=== PATIENT | male | born 1980 | race Two or more races ===

== ENCOUNTER 2025-01-09 07:04 | Emergency (ER) | payer BC, OTHER ==
[~2025-01-09] VITALS: Ht 182.9 cm; Wt 118.0 kg
[2025-01-09 07:05] VITALS: PULSE 0; RESP 0; O2SAT 0
[2025-01-09] MEDS ORDERED: AMIODARONE HCL (50 MG/ ML) 3 ML VIAL IV ONE ×2 (07:05→09:06)
[2025-01-09] MEDS ORDERED: EPINEPHrine HCL 1 MG/10 ML SYRG IV ONE (07:05)
[2025-01-09 07:10] VITALS: TEMP 100.5
--- NOTE | 2025-01-09 07:22 | ED.PDOC ---
CPR-HPI HPI Comments 44 y/o M, BIBA, with no past medical history presents to the ED in full arrest. EMS reports, patient was playing basket ball at a high school with friends when he suddenly collapsed. Prior to EMS, arrival friends started CPR and shocked patient x1 with AED; patient was down approximately 10 min prior to EMS arrival. In route to the ED, patient was found in V-Fib and was shocked x4; patient was given x4 epinephrin and 225mg of lidocaine with no return of ROSC. No airway was established in route d/t patient's jaw being clenched. Patient arrived to the ED at 0704 and was transferred to ER bed 7, ACLS protocol initiated. ROSC established as of 718. 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, Medications, Allergies Allergies: Coded Allergies: NO KNOWN ALLERGIES (Unverified , 08/13/10) Information Source: Emergency Med Personnel Mode of Arrival: EMS Timing: Minutes Duration: Down time prior EMS: (10min), Total time prior hopital: (15min) Onset: With exertion Available Hx: Unknown Inital rhythm: V-fib Treatment: CPR Associated signs and symptoms: None Past Medical History PAST MEDICAL HISTORY: Unobtainable Surgical History: Unobtainable Family History Family History: Unknown Social History Smoker: Unobtainable Alcohol: Unobtainable Drugs: Unobtainable Lives In: Unobtainable Unable to Obtain due to: Medical Urgency All Other Systems: Reviewed and Negative Physical Exam Exam Comments Patient pale diaphoretic, obese male unresponsive on arrival. No airway in place. Limited exam due to emergent situation. IO in place to the left tib-fib General Appearance: Other HEENT: Other Neck: Other Respiratory: Other Cardiovascular: Other Breast Exam: Other Gastrointestinal: Other Genitalia: Other Pelvic: Other Rectal: Other Extremities: Other Neurologic: Other Cerebellar Function: Other Reflexes: Other Skin: Other Lymphatic: Other EKG EKG : Comments Sinus tachycardia 134 left bundle branch block, no ST changes Was a procedure done? Was a procedure done?: Yes Sedation Sedation?: No Intubation Indication: Respiratory Insufficiency Intubation Approach: Orotracheal Intubation size: cm (8.0 at 22cm) Informed consent obtained: Yes Risks/benefits/alt described: Yes Differential Dx CPR Differential Diagnosis: Cardiopulmonary arrest, Heart Block, Myocardial Infarction, Pneumothorax, Pulmonary Embolus X-Ray, Labs, Meds, VS Vital Signs Date Time Temp Pulse Resp B/P (MAP) Pulse Ox O2 Delivery O2 Flow Rate FiO2 01/09/25 11:08 0 01/09/25 11:07 0 Ambu-Bag 01/09/25 08:45 127 20 74/46 (55) 68 01/09/25 08:40 89 27 65/40 (48) 96 01/09/25 08:40 65/40 01/09/25 08:40 65/40 01/09/25 08:35 51 13 66/15 (32) 77 01/09/25 08:35 66/15 01/09/25 08:35 66/15 01/09/25 08:30 109 17 75/14 (34) 77 01/09/25 08:25 76/40 01/09/25 08:25 124 24 76/40 (52) 78 01/09/25 08:25 134 Ambu-Bag 133 01/09/25 08:20 122 22 72/41 (51) 79 01/09/25 08:20 72/41 01/09/25 08:15 123 23 70/34 (46) 86 01/09/25 08:15 70/34 01/09/25 08:10 116 23 56/32 (40) 80 01/09/25 08:05 121 20 67/31 (43) 76 01/09/25 08:05 67/31 01/09/25 08:00 124 19 70/40 (50) 79 01/09/25 08:00 70/40 01/09/25 07:55 140 30 116/76 (89) 88 01/09/25 07:55 116/76 01/09/25 07:51 108/62 01/09/25 07:50 138 23 108/62 (77) 89 01/09/25 07:45 133 27 109/54 (72) 96 01/09/25 07:40 116/71 01/09/25 07:40 127 25 116/71 (86) 84 01/09/25 07:35 131 23 116/73 (87) 89 01/09/25 07:33 132 01/09/25 07:30 132 13 103/63 (76) 95 01/09/25 07:25 133 19 100/63 (75) 85 01/09/25 07:20 122 29 69/43 (52) 77 01/09/25 07:14 133 26 116/71 (86) 91 100 01/09/25 07:10 100.5 10 100.5 01/09/25 07:05 0 0 0/0 (0) 0 01/09/25 07:05 0 0 0 Mechanical Ventilator+ 100 100 Lab Test 01/09/25 08:23 01/09/25 07:30 Range/Units Myoglobin Pending Troponin I High Sensitivity 2047 *H 572 *H </=54 ng/L White Blood Count 17.0 H 4.4-10.8 10^3/uL Red Blood Count 4.90 4.5-5.90 10^6/uL Hemoglobin 14.9 13.5-17.5 g/dL Hematocrit 47.7 41.0-53.0 % Mean Corpuscular Volume 97.4 80.0-100.0 fL Mean Corpuscular Hemoglobin 30.4 28.0-32.0 pg Mean Corpuscular Hemoglobin Concent 31.2 L 32.0-36.0 g/dL Red Cell Distribution Width 14.0 11.8-14.3 % Platelet Count 208 140-450 10^3/uL Mean Platelet Volume 9.7 6.9-10.8 fL Neutrophils (%) (Auto) 37.0-80.0 % Lymphocytes (%) (Auto) 10.0-50.0 % Monocytes (%) (Auto) 0.0-12.0 % Basophils (%) (Auto) 0.0-2.0 % Neutrophils # (Auto) 1.6-8.6 10 ^3/uL Lymphocytes # (Auto) 0.4-5.4 10 ^3/uL Monocytes # (Auto) 0-1.3 10 ^3/uL Differential Total Cells Counted 100.0 100 Neutrophils % (Manual) 40 37.0-80.0 Band Neutrophils % (Manual) 2 Lymphocytes % (Manual) 48 10.0-50.0 Monocytes % (Manual) 7 0-12 Eosinophils % (Manual) 1 0-7 Basophils % (Manual) 0 0.0-2.0 Metamyelocytes % (manual) 0 Myelocytes % (Manual) 0 Promyelocytes % (Manual) 0 Blast Cells % (Manual) 0 Reactive Lymphocytes 2 Platelet Estimate Adequate Prothrombin Time 11.2 9.3-11.8 sec Prothrombin Time INR 1.06 0.9-1.15 Activated Partial Thromboplast Time 29.1 24.5-34.5 SEC D-Dimer, Quantitative 19.57 H 0.0-0.49 mg/L FEU Blood Gas Specimen Type Arterial Blood Gas Sample Site Right radial Blood Gas Patient Temperature 37.0 Arterial Blood Date Drawn [id number] Arterial Blood pH 6.872 *L 7.350-7.450 Arterial Blood Partial Pressure CO2 51.4 H 35.0-48.0 mmHg Arterial Blood Partial Pressure O2 132.8 H 83.0-108.0 mmHg Arterial Blood HCO3 9.2 L 21.0-28.0 mmol/L Arterial Blood Oxygen Saturation 95.5 94.0-98.0 % Arterial Blood Base Excess -24.6 L -2.0-3.0 mmol/L Arterial Blood Oxyhemoglobin 94.7 94.0-98.0 % Arterial Blood Carboxyhemoglobin 0.1 L 0.5-1.5 % Arterial Blood Methemoglobin 0.7 0.0-1.5 % Ry Test Yes Blood Gas Total Hemoglobin 15.80 13.5-17.5 g/dL Blood Gas Liter Flow 15.00 Blood Gas Modality Mask - nrb FiO2 % 100.0 Blood Gas Critical Value Read Back yes Blood Gas Notified Whom Blood Gas Notified Time [id number] Blood Gas Notified By online media director chuck Sodium Level 144 136-145 mmol/L Potassium Level 3.1 L 3.5-5.1 mmol/L Chloride Level 101 98-107 mmol/L Carbon Dioxide Level 17 L 20-31 mmol/L Anion Gap 26 H 5-15 Blood Urea Nitrogen 24 H 9-23 mg/dL Creatinine 1.67 H 0.700-1.30 mg/dL Glomerular Filtration Rate Calc 51 >90 mL/min BUN/Creatinine Ratio 14.4 10.0-20.0 Serum Glucose 481 *H 74-106 mg/dL Calcium Level 10.2 8.7-10.4 mg/dL Phosphorus Level 10.9 H 2.4-5.1 mg/dL Magnesium Level 4.6 *H 1.6-2.6 mg/dL Total Bilirubin 0.6 0.2-1.0 mg/dL Direct Bilirubin 0.2 <0.3 mg/dL Aspartate Amino Transferase (AST) 261 H 13-40 U/L Alanine Aminotransferase (ALT) 394 H 7-40 U/L Alkaline Phosphatase 118 H 46-116 U/L Creatine Kinase 156 46-171 U/L B-Type Natriuretic Peptide 244.57 0-100 pg/mL Total Protein 5.4 L 5.7-8.2 g/dL Albumin 3.6 3.2-4.8 g/dL Lipase 185 H 12-53 U/L Cortisol AM Sample 3.29 L 5.27-22.45 ug/dL Microbiology Date/Time Source Procedure Growth Status 01/09/25 07:45 Sputum Expectorated Sputum Gram Stain - Preliminary Resulted 01/09/25 07:45 Sputum Expectorated Sputum Respiratory Culture Pending Resulted Current Medications Medications (Trade) Dose Ordered Sig/Amaury Route Start Time Stop Time Status Last Admin Norepinephrine Bitartrate 250 ml @ 3.75 mls/hr Q24H IV 01/09/25 07:30 01/09/25 08:00 Propofol 100 ml @ 3.544 mls/ hr Q24H IV 01/09/25 07:30 01/09/25 07:40 Fentanyl Citrate 250 ml @ 2.5 mls/hr Q24H IV 01/09/25 09:15 01/09/25 08:35 [place] [id number] Ph: [phone] DIAGNOSTIC IMAGING Diagnostic Imaging Report : [id number] Signed PATIENT: ELEANOR HER ACCT: [id number] UNIT: [id number] : 1980 LOC: ER ROOM / BED: / AGE / SEX: 44 / M ADM STATUS: REG ER SERVICE 0720 ORDERING PHYSICIAN: JENNIFER BLUM MD PROCEDURE(s): CXRP - CHEST PORTABLE REASON: S/P INTUBATION ROSC ORDER NUMBER(s): [id number], ACCESSION NUMBER(s): [id number] EXAM: XR Chest, 1 View CLINICAL INDICATION: S/P INTUBATION ROSC TECHNIQUE: Frontal view of the chest. COMPARISON: None FINDINGS: LUNGS AND PLEURAL SPACES: See below. HEART: Cardiomegaly with pulmonary congestion and edema. Superimposed pneumonia cannot be excluded. MEDIASTINUM: Unremarkable. Normal mediastinal contour. BONES/JOINTS: Unremarkable. No acute fracture. TUBES, LINES AND DEVICES: The endotracheal tube (ETT) is in satisfactory position. OTHER FINDINGS: . . . IMPRESSION: Cardiomegaly with pulmonary congestion and edema. Superimposed pneumonia cannot be excluded. ATED BY: DAVID VEGA MD DICTATED DATE/TIME: 01/09/25799 SIGNED BY: DAVID VEGA MD SIGNED DATE/TIME: 01/09/25799 CC: 44-year-old male presents here status post cardiac arrest. Patient was playing basketball when he suddenly collapsed. Immediate bystander CPR was started. He was found to be in VFib in his shockable rhythm by EMS and was shocked several times before coming to the emergency department and several rounds of epinephrine were given. However he continued to remain in VFib/asystole. Patient arrived to the ER remained in asystole. CPR was continued. Please see procedure note. Multiple rounds of epinephrine were given, including calcium chloride IV, sodium bicarb, magnesium sulfate. Airway was established. Please see procedure note. Ultimately ROSC. EKG demonstrated new left bundle branch block. Unclear if this was old or new but no old EKG to compare with. At this time Dr. Kimberlyn Shepard centrifugal separator was consulted and he agreed a STEMI should be called. Attempted to start a hypothermic protocol however require a CT scan of the brain and patient too unstable to obtain CT scan of the brain. Initially blood pressure remained stable however before STEMI team could arrive blood pressure started to drop and heart rate became more unstable. Blood work had returned with elevated troponin in the 500s magnesium of 4.6. At this time patient was found to be hypoxic in the high 80s despite adequate ventilation. Differential included cardiac arrest secondary to massive SD versus PE, aortic dissection. However patient too unstable to obtain a CT angio of the chest. Blood work had returned with evidence of leukocytosis of 17 which could be an acute phase reactant. Also has evidence of mild hypokalemia at 3.1. Transaminitis. Mild acute kidney injury. Elevated troponin in the 500s magnesium of 4.6. D-dimer ordered and is still pending. Ultimately it was decided to take patient to catheter finisher and inspector despite being unstable. During this time I was in closely in contact with family. Spoke to , parents of the patient and son several times regarding his critical status. They were aware. Time of 1ST Reevaluation: 07:34 Reevaluation 1ST: Unchanged Patient Education/Counseling: Diagnosis, Treatment Family Education/Counseling: No Family Present Departure 1 Departure Time of Disposition: 09:04 Impression: Primary Impression: Cardiac arrest Disposition: 09 ADMITTED INPATIENT Condition: Critical Critical Care Note Critical Care Time?: Yes (90 min-critical care time only) Critical care comment: Time spent seeing the patient immediately, managing vent settings, reviewing ABG results, speaking to respiratory therapist, speaking to family, speaking to nursing staff, speaking to centrifugal separator Dr. Shepard.. Patient required multiple re-evaluations. Managing pressors. Heart Score Heart Score: Heart Score Response (Comments) Value History Highly Suspicious 2 EKG Repolarization Disturb 1 Age 45-64 1 Risk Factors >3 or Hx ASHD 2 Troponin >3 x's Normal limit 2 Total 8 Stability Stability form required: No I personally scribed for JENNIFER BLUM MD ([email or web address]) on 01/09/25 at 07:22. Electronically submitted by Yanira Cobos [email or web address]). I personally scribed for JENNIFER BLUM MD ([email or web address]) on 01/09/25 at 07:57. Electronically submitted by Yanira Cobos [email or web address]). I personally scribed for JENNIFER BLUM MD ([email or web address]) on 01/09/25 at 08:46. Electronically submitted by Yanira Cobos [email or web address]). JENNIFER BLUM MD Jan 09, 2025 07:22
[2025-01-09 07:40] LABS: Base Excess -24.6 mmol/L (-2.0-3.0)
[2025-01-09] MEDS: PROPOFOL 100 ML IV SCH (07:40)
[2025-01-09] MEDS: NOREPINEPHRINE 8 MG/250ML KIT 250 ML IV SCH (08:00)
[2025-01-09] MEDS ORDERED: HEPARIN SODIUM (PORCINE) 5000 UNITS/ML 1ML VIAL IV ONE (08:00)
[2025-01-09] MEDS ORDERED: SODIUM PHOSPHATES 20 MEQ in SODIUM CHL 0.9% 100 ML IV PRN (08:00)
[2025-01-09] MEDS ORDERED: MAGNESIUM SULF 50% 40 MEQ/10 ML VL IV PRN (08:00)
[2025-01-09] MEDS ORDERED: ASPirin 300 MG RECTAL SUPP PR ONE ×2 (08:00)
[2025-01-09] MEDS ORDERED: MAGNESIUM SULFATE 1GM/100ML 200 ML IV PRN (08:00)
--- NOTE | 2025-01-09 08:02 | DVH ---
EXAM: XR Chest, 1 View CLINICAL INDICATION: S/P INTUBATION ROSC TECHNIQUE: Frontal view of the chest. COMPARISON: None FINDINGS: LUNGS AND PLEURAL SPACES: See below. HEART: Cardiomegaly with pulmonary congestion and edema. Superimposed pneumonia cannot be excluded. MEDIASTINUM: Unremarkable. Normal mediastinal contour. BONES/JOINTS: Unremarkable. No acute fracture. TUBES, LINES AND DEVICES: The endotracheal tube (ETT) is in satisfactory position. OTHER FINDINGS: . . . IMPRESSION: Cardiomegaly with pulmonary congestion and edema. Superimposed pneumonia cannot be excluded.
[2025-01-09 08:22] LABS: Hematocrit 47.7 % (41.0-53.0); Hemoglobin 14.9 g/dL (13.5-17.5); Mean Corpuscular Hemoglobin 30.4 pg (28.0-32.0); Mean Corpuscular Hgb Conc. 31.2 g/dL (32.0-36.0); Mean Corpuscular Volume 97.4 fL (80.0-100.0); Platelet Count (auto) 208 10^3/uL (140-450)
[2025-01-09 08:24] LABS: Basophils % (manual) 0 (0.0-2.0); Blast Cells 0; Metamyelocytes % 0; Myelocytes % 0; Promyelocytes % 0
--- NOTE | 2025-01-09 08:25 | RESUS ---
CODE BLUE ASSESSSMENT History of Events History of Events: Pt BIBA with manual CPR in progress. Per EMS, pt was playing basketball at [facility] when he collapsed. Bystander CPR initiated and AED placed on pt. EMS states pt initial rhythm was VFib was shocked x3. IO initiated to R proximal tibia; Lidocaine 225mg given; Epi x4 rounds with last at arrival to ER doors. Pt's last rhythm upon arrival asystole. Field FSBS 189. Approx downtime 10 minutes prior to arrival. Initial Information Date: Jan 09, 2025 Time: 07:04 Location of Arrest: In Field Arrest Witnessed: Yes CPR started initial time: 06:50 CPR started by whom: Bystander Last seen well: 644 Pre-Hospital Care: ACLS Type of arrest: Cardiac, Respiratory, Adult, Witnessed Spontaneous Respirations: No Pulse Present: No Monitoring: ECG, Pulse Oximetry, Telemetry Crash Cart Opened and Supplies: Yes Airway Ventilation Breathing at Onset: Assisted Oxygen Delivery Method: Ambu-Bag Time of first Assisted Ventila: 07:04 Artificial Ventilation: Bag/Mask Intubation Time: 07:14 Intubation Size: 8.0 cuffed Intubated by: RT Luis Felipe Intubation Attempts: 3 Intubated orally: Yes Intubated Nasaly: No Tube secured at: 24 (cm @ lip) Cricoid pressure done: Yes CO2 indicator used: Yes Confirmation: Auscultation, Exhaled CO2, Chest X-ray Suctioning (Oral/Tracheal): Yes Comments: 1st attempt @ 0709 by RT Mona 2nd attempt @ 0710 by RT Luis Felipe Circulation Circulation #1: Time: 07:04 Pulse Rate (adult): 0 Blood Pressure Systolic: 0 Blood Pressure Diastolic: 0 Temperature (Fahrenheit): 100.5 (F; rectal) Circulation Comment: Asystole Circulation #2: Time: 07:06 Pulse Rate (adult): 0 Blood Pressure Systolic: 0 Blood Pressure Diastolic: 0 Circulation Comment: Asystole Circulation #3: Time: 07:08 Pulse Rate (adult): 0 Blood Pressure Systolic: 0 Blood Pressure Diastolic: 0 Circulation Comment: Asystole Circulation #4: Time: 07:10 Pulse Rate (adult): 0 Blood Pressure Systolic: 0 Blood Pressure Diastolic: 0 Circulation Comment: Asystole Circulation #5: Time: 07:12 Pulse Rate (adult): 0 Blood Pressure Systolic: 0 Blood Pressure Diastolic: 0 Circulation Comment: Asystole Circulation #6: Time: 07:14 Pulse Rate (adult): 0 Blood Pressure Systolic: 0 Blood Pressure Diastolic: 0 Circulation #7: Time: 07:16 Pulse Rate (adult): 0 Blood Pressure Systolic: 0 Blood Pressure Diastolic: 0 Circulation Comment: PEA Circulation #8: Time: 07:19 Pulse Rate (adult): 135 Blood Pressure Systolic: 130 Blood Pressure Diastolic: 81 Circulation Comment: ROSC; verified with doppler and cardiac US performed by Dr Escudero at bedside Circulation #9: Time: 07:25 Pulse Rate (adult): 133 Blood Pressure Systolic: 100 Blood Pressure Diastolic: 63 Procedure - IV Procedure - IV : IV start time: 07:26 IV Side: Left IV Location: Antecubital IV Catheter Type: Saline Lock IV Placed: RN IV Placed by Agapito Sprague RN IV Gauge: 18 IV Line Care: Saline Flush Medications & Response Medications and Responses #1: Medication Time: 07:08 ADULT Medications Given ADULT: Epinephrine 1 mg Route of Administration: IO Heart Rate: 0 Blood Pressure Systolic: 0 Blood Pressure Diastolic: 0 Respiratory Rate: 0 Medications and Responses #2: Medication Time: 07:10 ADULT Medications Given ADULT: Sodium Bacarbinate 50 meq Route of Administration: IO Heart Rate: 0 Blood Pressure Systolic: 0 Blood Pressure Diastolic: 0 Respiratory Rate: 0 Medications and Responses #3: Medication Time: 07:12 ADULT Medications Given ADULT: Epinephrine 1 mg, Magnesium Sulfate 4 gm Route of Administration: IO Heart Rate: 0 Blood Pressure Systolic: 0 Blood Pressure Diastolic: 0 Respiratory Rate: 0 Medications and Responses #4: Medication Time: 07:14 ADULT Medications Given ADULT: Sodium Bacarbinate 50 meq, Calcium Chloride 10 mL Route of Administration: IO Heart Rate: 0 Blood Pressure Systolic: 0 Blood Pressure Diastolic: 0 Respiratory Rate: 0 Medications and Responses #5: Medication Time: 07:17 ADULT Medications Given ADULT: Epinephrine 1 mg Route of Administration: IO Heart Rate: 0 Blood Pressure Systolic: 0 Blood Pressure Diastolic: 0 Respiratory Rate: 0 Medications and Responses #6: Medication Time: 07:36 ADULT Medications Given ADULT: 2 Amps Na Bicarb Route of Administration: IO Heart Rate: 134 EKG Rhythm: Sinus Tachycardia Procedure - NG/OG Tube Procedure - NG/OG Tube : Type of gastric tube placed: OG Time gastric tube placed: 07:43 Gastric Tube Location: Oral Tube Size: 16 GI Tube Secured: Yes Gastric Tube Suction Type/Desc: Clamped NG Tube Patency/Placement: Patent, Auscultated, Aspirated NG/OG tube inserted by: Baldomero Domingo RNsenior digital designer - ABG ABG Time: 07:28 ABG site: Rt Radial ABG done by: RT Luis Felipe ABG number of attempts: 1 Procedure - Dickson Catheter Time: 07:41 Urinary Catheter Type/Location: Uretheral (Dickson) Urinary Catheter Size: 16 Urine Appearance: Clear Urine Color: Yellow Dickson Catheter Secured: Yes Dickson Catheter Inserted by Who: Agapito Sprague RN Nurses Notes Noemy Coma Scale Eye Opening: None (1) Noemy Coma Scale Verbal: None (1) [place] Coma Scale Motor: None (1) Glascow Total: 3 Pupil Reaction: Non Reactive (2mm) Bedside Blood Glucose: 173 EKG Rhythm: Sinus Tachycardia (@ 0733 : HR 132; Sinus tach with L BBB) Nurses Notes - Comment: 0727: XRay at bedside; confirmed placement of ETT without adjustments needed 0734 : EKG sent to Dr Shepard for possible STEMI alert 0750: Confirmed STEMI via Dr Shepard with quality assurance qa lab analyst team notified Time Code Ended Time Code Ended: 07:19 Post Arrest Status: Ventilated Outcome of code: Successful Family notified: Yes Code Team Present: Dr Escudero - ER MD; Khang Sprague RN - ER Charge; Lin Pappas RN - Shaper Set Up Operator; Baldomero Domingo RN - Shaper Set Up Operator; Vitaliy Vargas, RT; Nickolas Vargas, RT; Agapito Sprague RN; Sheree Elmore, RN; Heather Santiago, ERT; Miguelina Vargas, ERT; Travon Sofia, ERT; Rupali Domingo, EMS Student Post Resuscitation Neurologica Pupil Size: 2 ROSC Time of ROSC: 07:19 Pt Meets Criteria for Therapeu: Yes Therapeutic Hyperthermia Start: Yes Lin Fisher Jan 09, 2025 08:25
[2025-01-09] MEDS ORDERED: IODIXANOL 320MG/ML 100ML BTL IV ONE (08:26)
[2025-01-09] MEDS ORDERED: SODIUM CHL 0.9% 50 ML ONE (08:26)
[2025-01-09] MEDS ORDERED: LIDOCAINE 2%HCL (LOCAL ANESTH.) INJ 20ML MDV ONE (08:26)
[2025-01-09] MEDS ORDERED: HEPARIN IN NS 1000Units/500mL 1,500 ML ONE (08:26)
[2025-01-09] MEDS ORDERED: ANGIOMAX 250 MG VIAL IV ONE (08:26)
[2025-01-09 08:28] LABS: Albumin 3.6 g/dL (3.2-4.8); Anion Gap 26 (5-15); BUN/Creatinine Ratio 14.4 (10.0-20.0); Bilirubin, Direct 0.2 mg/dL (<0.3); Calcium 10.2 mg/dL (8.7-10.4); Chloride 101 mmol/L (98-107); Creatine Kinase IFCC 156 U/L (46-171); Sodium 144 mmol/L (136-145)
[2025-01-09 08:29] LABS: Bilirubin, Total 0.6 mg/dL (0.2-1.0); Carbon Dioxide 17 mmol/L (20-31); Phosphorus 10.9 mg/dL (2.4-5.1); Potassium 3.1 mmol/L (3.5-5.1)
[2025-01-09 08:30] LABS: Alanine Aminotransferase 394 U/L (7-40); Alkaline Phosphatase 118 U/L (46-116); Aspartate Aminotransferase 261 U/L (13-40); Blood Urea Nitrogen 24 mg/dL (9-23); Total Protein 5.4 g/dL (5.7-8.2)
[2025-01-09 08:34] LABS: Glucose 481 mg/dL (74-106); Magnesium 4.6 mg/dL (1.6-2.6)
[2025-01-09 08:35] LABS: INR 1.06 (0.9-1.15); Partial Thromboplastin Time 29.1 SEC (24.5-34.5); Prothrombin Time 11.2 sec (9.3-11.8)
[2025-01-09] MEDS: fentaNYL Drip 2500mCg/250mlNS 250 ML IV SCH (08:35)
[2025-01-09 08:45] VITALS: BP 74/46; PULSE 127; RESP 20; O2SAT 68
[2025-01-09 08:59] LABS: Lipase 185 U/L (12-53)
[2025-01-09] MEDS: NOREPINEPHRINE 8 MG/250ML KIT 250 ML IV ONE (09:07)
[2025-01-09] MEDS: fentaNYL Drip 2500mCg/250mlNS 250 ML IV ONE (09:17)
[2025-01-09] MEDS: MIDAZOLAM DRIP 50 mg/50mL 0 ML IV ONE (09:17)
[2025-01-09 09:28] LABS: Band Neutrophils % (manual) 2; Eosinophils % (manual) 1 (0-7); Lymphocytes % (manual) 48 (10.0-50.0); Monocytes % (manual) 7 (0-12); Platelet Estimate Adequate; Reactive Lymphocytes 2
--- NOTE | 2025-01-09 11:07 | RESUS ---
CODE BLUE ASSESSSMENT History of Events History of Events: PATIENT IN CABLE TELEVISION LINE TECHNICIAN. WENT INTO VTACH WITHOUT PULSE AND CODE RINA WAS CALLED. Initial Information Date: Jan 09, 2025 Time: 09:03 Location of Arrest: Front End Developer Designer Arrest Witnessed: Yes CPR started initial time: 09:04 CPR started by whom: Hospital Staff Type of arrest: Cardiac, Adult, Witnessed Spontaneous Respirations: No Pulse Present: No Monitoring: ECG, Pulse Oximetry Crash Cart Opened and Supplies: Yes Airway Ventilation Breathing at Onset: Assisted Oxygen Delivery Method: Ambu-Bag Artificial Ventilation: Bag/Endo tube Comments: PREVIOUSLY INTUBATED Circulation Circulation #1: Time: 09:03 Pulse Rate (adult): 0 Blood Pressure Systolic: 0 Blood Pressure Diastolic: 0 Circulation Comment: PULSELESS VTACH SHOCKED X 2 AT 120 JOULES AND 150 JOULES Circulation #2: Time: 09:05 Pulse Rate (adult): 0 Blood Pressure Systolic: 0 Blood Pressure Diastolic: 0 Circulation Comment: ASYSTOLE Circulation #3: Time: 09:07 Pulse Rate (adult): 0 Blood Pressure Systolic: 0 Blood Pressure Diastolic: 0 Circulation Comment: VTACH SHOCKED AT 150 JOULES Circulation #4: Time: 09:09 Pulse Rate (adult): 0 Blood Pressure Systolic: 0 Blood Pressure Diastolic: 0 Circulation Comment: PEA Circulation #5: Time: 09:11 Pulse Rate (adult): 0 Blood Pressure Systolic: 0 Blood Pressure Diastolic: 0 Circulation Comment: VFIB SHOCKED AT 200 JOULES Circulation #6: Time: 09:13 Pulse Rate (adult): 0 Blood Pressure Systolic: 0 Blood Pressure Diastolic: 0 Circulation Comment: VFIB SHOCKED AT 200 JOULES Circulation #7: Time: 09:15 Pulse Rate (adult): 0 Blood Pressure Systolic: 0 Blood Pressure Diastolic: 0 Circulation Comment: PEA Circulation #8: Time: 09:17 Pulse Rate (adult): 0 Blood Pressure Systolic: 0 Blood Pressure Diastolic: 0 Circulation Comment: PEA Circulation #9: Time: 09:19 Pulse Rate (adult): 0 Blood Pressure Systolic: 0 Blood Pressure Diastolic: 0 Circulation Comment: ASYSTOLE- TIME OF Defibrillation Defbrillation : Compressions: Manual Medications & Response Medications and Responses #1: Medication Time: 09:05 ADULT Medications Given ADULT: Epinephrine 1 mg Route of Administration: IV Medications and Responses #2: Medication Time: 09:08 ADULT Medications Given ADULT: Epinephrine 1 mg Route of Administration: IV Medications and Responses #3: Medication Time: 09:10 ADULT Medications Given ADULT: Sodium Bacarbinate 50 meq Route of Administration: IV Medications and Responses #4: Medication Time: 09:12 ADULT Medications Given ADULT: Epinephrine 1 mg Route of Administration: IV Medications and Responses #5: Medication Time: 09:14 ADULT Medications Given ADULT: Amiodarone 300 mg, Sodium Bacarbinate 50 meq Route of Administration: IV Medications and Responses #6: Medication Time: 09:16 ADULT Medications Given ADULT: Epinephrine 1 mg Route of Administration: IV Nurses Notes Noemy Coma Scale Eye Opening: None (1) May Coma Scale Verbal: None (1) May Coma Scale Motor: None (1) Pupil Reaction: Non Reactive EKG Rhythm: Asystole Time Code Ended Time Code Ended: 09:19 Post Arrest Status: Outcome of code: Unsuccessful Patient pronounced by: DR Kimberlyn MAYORGA Time patient pronounced: 09:19 Family notified: Yes Code Team Present: DR Kimberlyn MAYORGA, AINSLEY BRIAN CLERK GUIDE, DR GONZALEZ RESIDENT, BALDOMERO Chairez RN TAMMS SUP., PAT Kirk RN CABLE TELEVISION LINE TECHNICIAN CHARGE, PATY Burnett RN, CAROLINA Iraheta RN, AKIN Iraheta RT, OTF Burnett RT, CHANDLER AVENDANO, EDILIA Parks RN, ASHU AVENDANO, JUNO AVENDANO, LOCOBaldomero Albright Jan 09, 2025 11:07
--- NOTE | 2025-01-09 12:07 | DVHINCON2 ---
DATE OF CONSULTATION: 01/09/2025 HISTORY OF PRESENT ILLNESS: A 44-year-old gentleman, full cardiac arrest playing basketball this morning at high school and collapsed and the patient had CPR and downtime was 10 minutes before the paramedics came. The patient was in atrial fibrillation. Emergency Room doctor called me. The patient was started on Levophed drip. He received epinephrine and lidocaine. The patient overall has been intubated. Blood pressure is in the range of 61, Levophed 18 mcg and getting IV fluid wide open, intubated, heart rate 132, decreasing blood pressure, morbidly obese. The EKG revealed ST elevation in the inferior lead, lateral lead. The patient's WBC 17,000, hemoglobin 14.9. Potassium 3.1, creatinine 1.67. The patient's troponin 572. DIAGNOSES/PLAN: This patient has cardiac arrest, full CPR, downtime very long and morbidly obese, kidney injury, hypokalemia, STEMI. Discussion was done with his . I also discussed with the patient's mother and family members here. Prognosis is poor. We will do our best to help him but his mortality is extremely high which has been very clearly discussed with the family members. Rosamaria Shepard MD MP/DELIA/VALE TID: [id number] RECEIPT: [id number]
--- NOTE | 2025-01-09 15:30 | DVHPN ---
DATE: 01/09/2025 SUBJECTIVE: This gentleman had code STEMI. He was brought to the entry level lab technician urgently. His , mother, several family members have been counseled and informed them about poor outcome. He was put on a cardiac cath table. I attended him all along. I scrubbed him. The patient was found to have a full cardiac arrest, went in atrial fibrillation. He was shocked several times. He was given sodium bicarbonate IV. He was given IV epinephrine for a few times. He was given IV amiodarone. Again, had been shocked several times. CPI was continued. In spite of all the effort, the patient did not survive. The CPR was done by ECRS protocol. The family had been informed. The cause of is full cardiac arrest because of acute massive inferior lateral wall myocardial infarction. The procedure was not done. We have not given him any local anesthesia. We have not even put any line in the groin. So the patient before we started the procedure. Rosamaria Shepard MD MP/ESTEFANIA/VALE TID: [id number] RECEIPT: [id number]
--- NOTE | 2025-01-09 16:10 | ECG ---
[facility] Test Date: 2025-01-09 Test Time: 08:27:10 Pat Name: ELEANOR HER Department: ED Room: Gender: M Satellite Technician: vinny : 1980 Requested By: JENNIFER BLUM Order Number: [id number] Reading MD: Obdulio Narayanan Measurements Intervals [place] Rate: 121 P: 0 ME: 0 QRS: 129 QRSD: 181 T: 259 QT: 383 QTc: 544 Interpretive Statements Atrial flutter with 2:1 AV block RBBB and LPFB ST depr, consider ischemia, anterolateral lds Baseline wander in lead(s) I,II,aVR,aVF,V2,V4 Electronically Signed On 01-13-2025 20:46:02 PDT by Obudlio Narayanan Please click the below link to view image of tracing.
--- NOTE | 2025-01-11 12:18 | ECG ---
[facility] Test Date: 2025-01-09 Test Time: 07:33:38 Pat Name: ELEANOR HER Department: ED Room: Gender: M Customer Service Trainer: MANDI : 1980 Requested By: JENNIFER BLUM Order Number: [id number] Reading MD: Obdulio Narayanan Measurements Intervals [place] Rate: 132 P: 73 DE: 98 QRS: 24 QRSD: 135 T: 114 QT: 282 QTc: 418 Interpretive Statements Sinus tachycardia Consider right atrial enlargement Left bundle branch block Baseline wander in lead(s) V2,V4,V6 Electronically Signed On 01-13-2025 20:45:33 PDT by Obdulio Narayanan Please click the below link to view image of tracing.
== END 2025-01-09 09:19 ==
LOC: EDBD 07:04 → ER 07:04
DX: I46.9 Cardiac arrest, cause unspecified (principal); Z79.899 Other long term (current) drug therapy; Z86.2 Personal history of diseases of the blood and blood-forming organs and certain disorders involving the immune mechanism
CPT/HCPCS: 31500; 36415; 36600; 71045; 80053; 80076; 82533; 82550; 82805; 83690; 83735; 83874; 83880; 84100; 84484; 85007; 85027; 85379; 85610; 85730; 87070; 87205; 92950; 93005; 99291; 99292; C1769; C1894; J0171; J0282; J0583; J1644; J2704; J3475; Q9967; 99152